=== PATIENT | male | born 2000 | race Asian ===

== ENCOUNTER 2022-07-29 13:55 | Emergency (ER) | payer OTHER ==
--- NOTE | 2022-07-29 15:06 | RAD REPORT ---
EXAM DESCRIPTION: RAD - Knee Right 3 View - 07/29/2022 2:45 pm CLINICAL HISTORY: Right knee pain FINDINGS: No fracture or dislocation is seen. No bone or joint abnormality noted
--- NOTE | 2022-07-29 15:29 | ER ---
Nurse's Notes [facility] Name: Bob Parrish Age: 22 yrs Sex: Male : 2000 Arrival Date: 07/29/2022 Time: 13:58 Bed 10 Private MD: Diagnosis: Pain in right knee Presentation: 07/29 14:12 Chief complaint: Right knee pain that started while playing volleyball yesterday. hb Coronavirus screen: At this time, the client does not indicate any symptoms associated with coronavirus-19. Ebola Screen: No symptoms or risks identified at this time. Initial Sepsis Screen: Does the patient meet any 2 criteria? No. Patient's initial sepsis screen is negative. Does the patient have a suspected source of infection? No. Patient's initial sepsis screen is negative. Risk Assessment: Do you want to hurt yourself or someone else? Patient reports no desire to harm self or others. Onset of symptoms was July 28, 2022. 14:12 Method Of Arrival: Ambulatory hb 14:12 Acuity: MARCELINO 4 hb Triage Assessment: 14:14 General: Appears in no apparent distress. Behavior is calm, cooperative. Pain: Pain hb currently is 7 out of 10 on a pain scale. Neuro: Level of Consciousness is awake, alert, obeys commands, Oriented to person, place, time, situation. Cardiovascular: Patient's skin is warm and dry. Respiratory: Respiratory effort is even, unlabored, Respiratory pattern is regular, symmetrical. Historical: - Allergies: 14:13 No Known Allergies; hb - Immunization history:: Adult Immunizations up to date. - Social history:: Smoking status: Patient denies any tobacco usage or history of. Screenin:52 Abuse screen: Denies threats or abuse. Nutritional screening: No deficits noted. kr3 Tuberculosis screening: No symptoms or risk factors identified. Fall Risk None identified. Vital Signs: 14:13 BP 130 / 91; Pulse 79; Resp 16; Pulse Ox 100% on R/A; Weight 52.16 kg; Height 5 ft. 2 hb in. (157.48 cm); Pain 7/10; 14:13 Body Mass Index 21.03 (52.16 kg, 157.48 cm) hb ED Course: 13:58 Patient arrived in ED. as 14:08 Nava Adkins FNP-C is PHCP. kb 14:08 Hussain Rizzo MD is Attending Physician. kb 14:12 Arm band placed on. hb 14:13 Triage completed. hb 14:20 Bed in low position. Call light in reach. Side rails up X 1. kr3 14:38 Jayne Gibson, RN is Primary Nurse. kr3 14:47 Knee Right 3 View XRAY In Process Unspecified. EDMS 15:52 No provider procedures requiring assistance completed. Patient did not have IV access kr3 during this emergency room visit. Administered Medications: No medications were administered Medication: 15:53 VIS not applicable for this client. kr3 Outcome: 15:28 Discharge ordered by . kb 15:52 Patient left the ED. kr3 15:52 Discharged to home ambulatory. kr3 15:52 Condition: stable 15:52 Discharge instructions given to left before signing discharge paper work Signatures: Dispatcher [employer] EDME Nava Adkins, TEOFILO-Pat CMO & PRESIDENT-Carey Wong as Yokasta Peres, YULIET HORVATH Jayne Gibson, RN RN kr3
--- NOTE | 2022-07-29 15:29 | EDPHYS ---
Physician Documentation [facility] Name: Bob Parrish Age: 22 yrs Sex: Male : 2000 Arrival Date: 07/29/2022 Time: 13:58 Bed 10 Private MD: ED Physician Hussain Rizzo HPI: 07/29 15:49 This 22 yrs old Male presents to ER via Ambulatory with complaints of Knee Injury.kb 15:49 The patient presents with decreased range of motion, pain. The complaints affect the kb right knee. Context: The problem was sustained at a sports field or court, resulted from the patient falling, the patient can fully bear weight, the patient is able to ambulate. Onset: The symptoms/episode began/occurred yesterday. Modifying factors: The symptoms are alleviated by nothing. the symptoms are aggravated by bending knee. Associated signs and symptoms: The patient has no apparent associated signs or symptoms. Treatment prior to arrival includes: knee brace. Severity of symptoms: At their worst the symptoms were moderate, in the emergency department the symptoms are unchanged. The patient has not experienced similar symptoms in the past. The patient has not recently seen a physician. Pt reports right knee pain after falling onto it during a volleyball game. Historical: - Allergies: 14:13 No Known Allergies; hb - Immunization history:: Adult Immunizations up to date. - Social history:: Smoking status: Patient denies any tobacco usage or history of. ROS: 15:10 Constitutional: Negative for fever, chills, and weight loss. kb 15:10 MS/extremity: Positive for pain, of the right knee. 15:10 All other systems are negative. Exam: 15:10 Constitutional: This is a well developed, well nourished patient who is awake, alert, kb and in no acute distress. Head/Face: Normocephalic, atraumatic. ENT: Moist Mucous membranes Cardiovascular: Regular rate and rhythm with a normal S1 and S2. No gallops, murmurs, or rubs. No pulse deficits. Respiratory: Respirations even and unlabored. No increased work of breathing. Talking in full sentences Skin: Warm, dry with normal turgor. Normal color. Neuro: Awake and alert, GCS 15, oriented to person, place, time, and situation. Moves all extremities. Normal gait. Psych: Awake, alert, with orientation to person, place and time. Behavior, mood, and affect are within normal limits. 15:10 Musculoskeletal/extremity: Extremities: grossly normal except: noted in the right knee: pain, ROM: limited active range of motion due to pain, in the right knee, Circulation is intact in all extremities. Sensation intact. Weight bearing: able to fully bear weight. Vital Signs: 14:13 BP 130 / 91; Pulse 79; Resp 16; Pulse Ox 100% on R/A; Weight 52.16 kg; Height 5 ft. 2 hb in. (157.48 cm); Pain 7/10; 14:13 Body Mass Index 21.03 (52.16 kg, 157.48 cm) hb MDM: 14:15 Patient medically screened. kb 15:10 Data reviewed: vital signs, nurses notes. Data interpreted: Pulse oximetry: on room air kb is 100 %. Interpretation: normal. Counseling: I had a detailed discussion with the patient and/or guardian regarding: the historical points, exam findings, and any diagnostic results supporting the discharge/admit diagnosis, radiology results, the need for outpatient follow up, a orthopedic surgeon, to return to the emergency department if symptoms worsen or persist or if there are any questions or concerns that arise at home. 07/29 14:15 Order name: Knee Right 3 View XRAY; Complete Time: 15:10 kb Administered Medications: No medications were administered Disposition: 17:43 Co-signature as Attending Physician, Hussain Rizzo MD I agree with the assessment and kdr plan of care. Disposition Summary: 07/29/22 15:28 Discharge Ordered Location: Home kb Condition: Stable kb Diagnosis - Pain in right knee kb Followup: kb - With: Emergency Department - When: As needed - Reason: Worsening of condition Followup: kb - With: Private Physician - When: 2 - 3 days - Reason: Recheck today's complaints, Continuance of care, Re-evaluation by your physician Discharge Instructions: - Discharge Summary Sheet kb - Acute Knee Pain, Adult, [id number] kb Forms: - Medication Reconciliation Form kb - Thank You Letter kb - Antibiotic Education kb - Prescription Opioid Use kb Signatures: Dispatcher [employer] EDNava Lazar, LABORER [employer]VAGE-C LABORER [employer]AGE-Hussain Morocho MD MD kdr Baxter, Heather, RN RN hb
[2022-07-29 16:03] VITALS: BP 130/91; O2SAT 100
== END 2022-07-29 15:52 | disposition home or self-care (01) ==
LOC: ER 13:55
DX: M25.561 Pain in right knee (principal)
CPT/HCPCS: 99282